=== PATIENT | male | born 1990 | race Caucasian/White ===

== ENCOUNTER 2017-07-05 07:00 | Emergency (ER) | payer SELFPAY ==
[~2017-07-05] VITALS: Ht 165.1 cm; Wt 75.3 kg
[2017-07-05 07:34] LABS: BASOPHIL % 0.5 % (0-2); PLATELET COUNT 259 x10^3mcL (130-400); RED CELL DISTRIBUTION WIDTH 12.5 % (11.5-14.5)
[2017-07-05 07:48] LABS: CALCIUM 9.4 mg/dL (8.5-10.1); CARBON DIOXIDE 24.2 mmol/L (21-32); CHLORIDE SERUM 105 mmol/L (98-107); GFR1 > 60 mL/min; GLUCOSE SERUM 79 mg/dL (74-106); POTASSIUM SERUM 3.7 mmol/L (3.5-5.1); SODIUM SERUM 138 mmol/L (136-145)
[2017-07-05 07:53] LABS: ALBUMIN 4.2 g/dL (3.4-5.0); ALKALINE PHOSPHATASE 66 U/L (46-116); ALT/SGPT 47 U/L (16-63); AST/SGOT 51 U/L (15-37); BILIRUBIN TOTAL 0.56 mg/dL (0.20-1.00)
[2017-07-05 09:16] LABS: microscopic required? NO
[2017-07-05 09:38] LABS: UA SPECIFIC GRAVITY <=1.005 (1.005-1.035); urine erythrocyte NEGATIVE (NEGATIVE)
[2017-07-05 09:50] LABS: AMPHETAMINE QUAL UR NONE DETECTED (NEG <=1000)
[2017-07-05 11:00] VITALS: BP 127/64
== END 2017-07-05 10:30 | disposition home or self-care (01) ==
LOC: ED 07:00
PROVIDERS: Emergency Medicine
DX: R06.00 Dyspnea, unspecified (principal); M54.9 Dorsalgia, unspecified
CPT/HCPCS: 36415; 85378; J1885; J7613; J7644; Q0092